=== PATIENT | female | born 1975 | race Two or more races ===

== ENCOUNTER 2025-01-21 15:33 | Emergency (ER) | payer OTHER ==
[~2025-01-21] VITALS: Ht 149.9 cm; Wt 66.2 kg
[2025-01-21] MEDS ORDERED: CELEBREX100 MG PO (17:14)
[2025-01-21] MEDS ORDERED: DEXAMETHASONE SODIUM PHOSPHATE 4 MG/ML VIAL IM ONE (17:15)
[2025-01-21] MEDS ORDERED: KETOROLAC TROMETHAMINE 60 MG VIAL IM ONE (17:15)
== END 2025-01-21 17:44 | disposition home or self-care (01) ==
LOC: ER 15:36
DX: M79.672 Pain in left foot (principal); Z88.2 Allergy status to sulfonamides; Z91.013 Allergy to seafood